=== PATIENT | male | born 1945 | race African-American/Black ===

== ENCOUNTER 2021-08-09 23:36 | Inpatient (IN) | payer OTHER, MEDICAID, SELFPAY ==
[~2021-08-09] VITALS: Ht 172.7 cm; Wt 77.1 kg
[2021-08-09 23:43] VITALS: BP 97/49
[2021-08-10] MEDS ORDERED: PANTOPRAZOLE 40 MG INJ VIAL IVP ONE (00:15)
[2021-08-10 00:49] LABS: BASOPHILS % (AUTO) 0.4 % (0.0-2.0); EOSINOPHILS % (AUTO) 0.6 % (0.0-4.0); HEMOGLOBIN 7.6 g/dL (12.0-18.0); LYMPHOCYTES # (AUTO) 0.6 K/uL (2.0-11.5); LYMPHOCYTES % (AUTO) 23.6 % (20.5-51.1); MEAN CORPUSCULAR HEMOGLOBIN 28 pg (27-31); MEAN CORPUSCULAR HGB CONC 34 g/dL (33-37); MEAN CORPUSCULAR VOLUME 79.8 fL (80-94); MONOCYTES # (AUTO) 0.4 K/uL (0.8-1.0); MONOCYTES % (AUTO) 13.6 % (1.7-9.3); NEUTROPHILS # (AUTO) 1.7 K/uL (1.8-7.7); NEUTROPHILS % (AUTO) 61.8 % (42.2-75.2); PLATELET COUNT (AUTO) 56 K/uL (140-450); RED BLOOD CELL COUNT(AUTO) 2.75 MIL/uL (4.20-6.10); RED CELL DISTRIBUTION WIDTH 17.4 % (11.6-13.7); WHITE BLOOD COUNT (AUTO) 2.7 K/uL (4.8-10.8)
[2021-08-10] MEDS ORDERED: INSU-1343 SQ (00:57)
[2021-08-10] MEDS ORDERED: FERR-212 PO (00:57)
[2021-08-10] MEDS ORDERED: GABA100C PO (00:57)
[2021-08-10] MEDS ORDERED: ALFU10TE10 PO (00:57)
[2021-08-10] MEDS ORDERED: ISOS60TE70 PO (00:57)
[2021-08-10] MEDS ORDERED: CARV25TA2 PO (00:57)
[2021-08-10] MEDS ORDERED: INSU100V4 SQ (00:57)
[2021-08-10] MEDS ORDERED: SITA25TA3 PO (00:57)
[2021-08-10] MEDS ORDERED: CILO100T PO (00:57)
[2021-08-10 01:10] LABS: ANION GAP 16.4 (8-16); ASPARTATE AMINOTRANSFERASE 31 U/L (15-37); CARBON DIOXIDE 27.5 mmol/L (21-32); CHLORIDE 100 mmol/L (98-107); GLUCOSE 104 mg/dL (74-106); POTASSIUM 4.9 mmol/L (3.5-5.1); SODIUM SERUM 139 mmol/L (136-145); TOTAL BILIRUBIN 0.4 mg/dL (0.0-1.0)
[2021-08-10 01:17] LABS: CREATININE 8.7 mg/dL (0.6-1.3); UREA NITROGEN, BLOOD 66 mg/dL (7-18)
[2021-08-10 01:23] LABS: PROTHROMBIN TIME 12.1 secs (10.8-13.4)
[2021-08-10] MEDS ORDERED: NACL 0.9% 500 ML IV ONE (01:30)
[2021-08-10] MEDS ORDERED: DESMOPRESSIN 4 MCG/ML AMP IV ONE ×2 (01:45→02:10)
[2021-08-10] MEDS ORDERED: DESMOPRESSIN 4 MCG/ML AMP ONE (03:12)
[2021-08-10] MEDS ORDERED: SODIUM PHOS / POTASSIUM PHOS 1 PKT PDR PO PRN (08:10)
[2021-08-10] MEDS ORDERED: DOCUSATE SODIUM 100 MG GELCAP PO PRN (08:10)
[2021-08-10] MEDS ORDERED: ZOLPIDEM 5 MG TAB PO PRN (08:10)
[2021-08-10] MEDS ORDERED: ONDANSETRON 4 MG/2 ML VIAL IVP PRN (08:10)
[2021-08-10] MEDS ORDERED: POTASSIUM CHLORIDE 10 MEQ TABER PO PRN (08:10)
[2021-08-10] MEDS ORDERED: LORazepam 2 MG/ML VIAL IM/IVP PRN (08:10)
[2021-08-10] MEDS ORDERED: ACETAMINOPHEN 325 MG TAB PO PRN (08:10)
[2021-08-10] MEDS ORDERED: MAG SULF 2000 MG/WATER PREMIX 50 ML IV PRN (08:10)
[2021-08-10 09:00] VITALS: BP 124/62
[2021-08-10] MEDS: DEXT 5% / NACL 0.45% 1,000 ML IV SCH (09:11)
[2021-08-10] MEDS: PANTOPRAZOLE 40 MG INJ VIAL IVP SCH ×2 (09:11→20:05)
[2021-08-10 09:17] LABS: PROTHROMBIN TIME 10.4 secs (10.8-13.4)
[2021-08-10 09:21] LABS: CHOL/HDL RATIO 2.7 (1-4.5); FREE T4 (FREE THYROXINE) 0.98 ng/dL (0.76-1.46); PHOSPHORUS 6.4 mg/dL (2.5-4.9); THYROID STIMULATING HORMONE 0.9 uIU/mL (0.34-3.74)
[2021-08-10 12:00] VITALS: BP 114/47
[2021-08-10 16:00] VITALS: BP 142/64
[2021-08-10 20:00] VITALS: BP 129/62
[2021-08-11] VITALS: BP 155/63
[2021-08-11 04:00] VITALS: BP 174/75
[2021-08-11 07:20] LABS: BASOPHILS % (AUTO) 0.6 % (0.0-2.0); EOSINOPHILS % (AUTO) 1.1 % (0.0-4.0); HEMATOCRIT 25.1 % (36-52); HEMOGLOBIN 8.7 g/dL (12.0-18.0); LYMPHOCYTES # (AUTO) 0.5 K/uL (2.0-11.5); LYMPHOCYTES % (AUTO) 15.3 % (20.5-51.1); MEAN CORPUSCULAR HEMOGLOBIN 27 pg (27-31); MEAN CORPUSCULAR HGB CONC 35 g/dL (33-37); MEAN CORPUSCULAR VOLUME 78.4 fL (80-94); MONOCYTES # (AUTO) 0.2 K/uL (0.8-1.0); MONOCYTES % (AUTO) 6.3 % (1.7-9.3); NEUTROPHILS # (AUTO) 2.5 K/uL (1.8-7.7); NEUTROPHILS % (AUTO) 76.7 % (42.2-75.2); PLATELET COUNT (AUTO) 53 K/uL (140-450); RED BLOOD CELL COUNT(AUTO) 3.21 MIL/uL (4.20-6.10); RED CELL DISTRIBUTION WIDTH 16.5 % (11.6-13.7)
[2021-08-11 07:26] LABS: PHOSPHORUS 4.5 mg/dL (2.5-4.9); URIC ACID 3.5 mg/dL (2.6-7.2)
[2021-08-11 07:40] LABS: ALBUMIN 2.8 g/dL (3.4-5.0); ANION GAP 14.1 (8-16); ASPARTATE AMINOTRANSFERASE 31 U/L (15-37); CARBON DIOXIDE 27.2 mmol/L (21-32); CHLORIDE 100 mmol/L (98-107); GLUCOSE 90 mg/dL (74-106); MAGNESIUM 2.2 mg/dL (1.8-2.4); POTASSIUM 4.3 mmol/L (3.5-5.1); SODIUM SERUM 137 mmol/L (136-145); TOTAL BILIRUBIN 0.5 mg/dL (0.0-1.0); UREA NITROGEN, BLOOD 40 mg/dL (7-18)
[2021-08-11 08:00] VITALS: BP 143/51
[2021-08-11 08:07] LABS: CREATININE 6.3 mg/dL (0.6-1.3)
[2021-08-11] MEDS: DEXT 5% / NACL 0.45% 1,000 ML IV SCH (08:30)
[2021-08-11] MEDS: PANTOPRAZOLE 40 MG INJ VIAL IVP SCH ×2 (09:00→20:41)
[2021-08-11] MEDS: VIT-B COMP/VIT-C/FOLIC ACID 1 TAB PO SCH (09:09)
[2021-08-11 12:00] VITALS: BP 136/62
[2021-08-11 16:00] VITALS: BP 148/66
[2021-08-11 16:38] LABS: WHITE BLOOD COUNT (AUTO) 3.3 K/uL (4.8-10.8)
[2021-08-11] MEDS: CALCIUM ACETATE 667 MG TAB PO SCH (17:37)
[2021-08-11 20:00] VITALS: BP 149/66
[2021-08-12] VITALS: BP 140/65
[2021-08-12 04:00] VITALS: BP 136/60
[2021-08-12 07:47] LABS: BASOPHILS % (AUTO) 0.6 % (0.0-2.0); EOSINOPHILS % (AUTO) 0.6 % (0.0-4.0); HEMATOCRIT 27.6 % (36-52); HEMOGLOBIN 9.6 g/dL (12.0-18.0); LYMPHOCYTES # (AUTO) 1.3 K/uL (2.0-11.5); MEAN CORPUSCULAR HEMOGLOBIN 27 pg (27-31); MEAN CORPUSCULAR HGB CONC 35 g/dL (33-37); MEAN CORPUSCULAR VOLUME 78.6 fL (80-94); MONOCYTES # (AUTO) 0.4 K/uL (0.8-1.0); MONOCYTES % (AUTO) 10.4 % (1.7-9.3); NEUTROPHILS # (AUTO) 1.8 K/uL (1.8-7.7); NEUTROPHILS % (AUTO) 51.4 % (42.2-75.2); PLATELET COUNT (AUTO) 56 K/uL (140-450); RED BLOOD CELL COUNT(AUTO) 3.52 MIL/uL (4.20-6.10); RED CELL DISTRIBUTION WIDTH 16.9 % (11.6-13.7); WHITE BLOOD COUNT (AUTO) 3.6 K/uL (4.8-10.8)
[2021-08-12 08:00] VITALS: BP 138/58
[2021-08-12] MEDS: DEXT 5% / NACL 0.45% 1,000 ML IV SCH (08:15)
[2021-08-12 09:10] LABS: ANION GAP 14.2 (8-16); ASPARTATE AMINOTRANSFERASE 27 U/L (15-37); CARBON DIOXIDE 25.3 mmol/L (21-32); CHLORIDE 99 mmol/L (98-107); GLUCOSE 83 mg/dL (74-106); MAGNESIUM 2.1 mg/dL (1.8-2.4); POTASSIUM 4.5 mmol/L (3.5-5.1); SODIUM SERUM 134 mmol/L (136-145); TOTAL BILIRUBIN 0.4 mg/dL (0.0-1.0); UREA NITROGEN, BLOOD 55 mg/dL (7-18)
[2021-08-12 09:13] LABS: CREATININE 8.4 mg/dL (0.6-1.3)
[2021-08-12] MEDS: CALCIUM ACETATE 667 MG TAB PO SCH ×3 (09:30→17:45)
[2021-08-12] MEDS: VIT-B COMP/VIT-C/FOLIC ACID 1 TAB PO SCH (09:30)
[2021-08-12] MEDS: PANTOPRAZOLE 40 MG INJ VIAL IVP SCH ×2 (09:30→20:55)
[2021-08-12 12:00] VITALS: BP 139/65
[2021-08-12 16:00] VITALS: BP 138/56
[2021-08-12 20:00] VITALS: BP 165/70
[2021-08-13] VITALS (7 sets, daily range): BP systolic 122–152; BP diastolic 52–80
[2021-08-13 07:00] LABS: BASOPHILS % (AUTO) 0.5 % (0.0-2.0); EOSINOPHILS % (AUTO) 0.1 % (0.0-4.0); HEMATOCRIT 28.3 % (36-52); HEMOGLOBIN 9.7 g/dL (12.0-18.0); LYMPHOCYTES # (AUTO) 0.9 K/uL (2.0-11.5); LYMPHOCYTES % (AUTO) 36.2 % (20.5-51.1); MEAN CORPUSCULAR HEMOGLOBIN 27 pg (27-31); MEAN CORPUSCULAR HGB CONC 34 g/dL (33-37); MEAN CORPUSCULAR VOLUME 78.7 fL (80-94); MONOCYTES # (AUTO) 0.3 K/uL (0.8-1.0); MONOCYTES % (AUTO) 12.9 % (1.7-9.3); NEUTROPHILS # (AUTO) 1.3 K/uL (1.8-7.7); NEUTROPHILS % (AUTO) 50.3 % (42.2-75.2); PLATELET COUNT (AUTO) 43 K/uL (140-450); RED CELL DISTRIBUTION WIDTH 17.4 % (11.6-13.7); WHITE BLOOD COUNT (AUTO) 2.6 K/uL (4.8-10.8)
[2021-08-13 07:43] LABS: ALBUMIN 2.8 g/dL (3.4-5.0); ASPARTATE AMINOTRANSFERASE 29 U/L (15-37); CARBON DIOXIDE 28.2 mmol/L (21-32); CHLORIDE 100 mmol/L (98-107); GLUCOSE 117 mg/dL (74-106); MAGNESIUM 1.9 mg/dL (1.8-2.4); POTASSIUM 4.2 mmol/L (3.5-5.1); SODIUM SERUM 138 mmol/L (136-145); TOTAL BILIRUBIN 0.4 mg/dL (0.0-1.0); UREA NITROGEN, BLOOD 38 mg/dL (7-18)
[2021-08-13 08:33] LABS: CREATININE 6.6 mg/dL (0.6-1.3)
[2021-08-13] MEDS: CALCIUM ACETATE 667 MG TAB PO SCH ×3 (08:51→16:56)
[2021-08-13] MEDS: VIT-B COMP/VIT-C/FOLIC ACID 1 TAB PO SCH (08:51)
[2021-08-13] MEDS: PANTOPRAZOLE 40 MG INJ VIAL IVP SCH ×2 (08:51→20:30)
[2021-08-13] MEDS: EPOETIN ALFA-EPBX 10,000 UNITS/ML VIAL SUBQ SCH (08:51)
[2021-08-13] MEDS: DEXT 5% / NACL 0.45% 1,000 ML IV SCH (08:52)
[2021-08-13] MEDS ORDERED: CEPH-588 PO (10:48)
[2021-08-13] MEDS ORDERED: ASPI-1205 PO (10:48)
[2021-08-13] MEDS ORDERED: HYDROcodone/APAP 5/325 MG 1 TAB TAB PO PRN (11:10)
[2021-08-13] MEDS ORDERED: HYDROcodone/APAP 5/325 MG 1 TAB TAB ONE (11:13)
[2021-08-14] VITALS: BP 125/40
[2021-08-14] MEDS: guaiFENesin 20 MG/ML UDC PO PRN ×2 (00:47→05:44)
[2021-08-14 04:00] VITALS: BP 149/68
[2021-08-14 07:04] LABS: BASOPHILS % (AUTO) 0.5 % (0.0-2.0); EOSINOPHILS % (AUTO) 0.2 % (0.0-4.0); HEMATOCRIT 26.5 % (36-52); HEMOGLOBIN 9.2 g/dL (12.0-18.0); LYMPHOCYTES # (AUTO) 0.7 K/uL (2.0-11.5); LYMPHOCYTES % (AUTO) 26.8 % (20.5-51.1); MEAN CORPUSCULAR HEMOGLOBIN 27 pg (27-31); MEAN CORPUSCULAR HGB CONC 35 g/dL (33-37); MONOCYTES # (AUTO) 0.2 K/uL (0.8-1.0); MONOCYTES % (AUTO) 8.2 % (1.7-9.3); NEUTROPHILS # (AUTO) 1.7 K/uL (1.8-7.7); NEUTROPHILS % (AUTO) 64.3 % (42.2-75.2); PLATELET COUNT (AUTO) 42 K/uL (140-450); RED BLOOD CELL COUNT(AUTO) 3.41 MIL/uL (4.20-6.10); RED CELL DISTRIBUTION WIDTH 17.3 % (11.6-13.7); WHITE BLOOD COUNT (AUTO) 2.7 K/uL (4.8-10.8)
[2021-08-14 07:44] LABS: ALBUMIN 2.7 g/dL (3.4-5.0); ANION GAP 16.7 (8-16); ASPARTATE AMINOTRANSFERASE 32 U/L (15-37); CARBON DIOXIDE 26.2 mmol/L (21-32); CHLORIDE 98 mmol/L (98-107); GLUCOSE 94 mg/dL (74-106); POTASSIUM 4.9 mmol/L (3.5-5.1); SODIUM SERUM 136 mmol/L (136-145); TOTAL BILIRUBIN 0.5 mg/dL (0.0-1.0); UREA NITROGEN, BLOOD 60 mg/dL (7-18)
[2021-08-14 08:00] VITALS: BP 134/50
[2021-08-14 08:01] LABS: MAGNESIUM 1.9 mg/dL (1.8-2.4)
[2021-08-14] MEDS: VIT-B COMP/VIT-C/FOLIC ACID 1 TAB PO SCH (08:30)
[2021-08-14] MEDS: PANTOPRAZOLE 40 MG INJ VIAL IVP SCH ×2 (08:30→20:36)
[2021-08-14] MEDS: CALCIUM ACETATE 667 MG TAB PO SCH ×3 (08:31→17:50)
[2021-08-14] MEDS: DEXT 5% / NACL 0.45% 1,000 ML IV SCH (08:31)
[2021-08-14 12:00] VITALS: BP 139/70
[2021-08-14] MEDS ORDERED: oxyCODONE/APAP 5/325 MG 1 TAB TAB PO PRN (13:45)
[2021-08-14 16:00] VITALS: BP 124/48
[2021-08-14 20:00] VITALS: BP 130/70
[2021-08-15] VITALS: BP 128/71
[2021-08-15 04:00] VITALS: BP 126/68
[2021-08-15 07:21] LABS: BASOPHILS % (AUTO) 0.6 % (0.0-2.0); EOSINOPHILS % (AUTO) 0.1 % (0.0-4.0); HEMATOCRIT 27.6 % (36-52); HEMOGLOBIN 9.4 g/dL (12.0-18.0); LYMPHOCYTES # (AUTO) 0.6 K/uL (2.0-11.5); LYMPHOCYTES % (AUTO) 20.3 % (20.5-51.1); MEAN CORPUSCULAR HEMOGLOBIN 27 pg (27-31); MEAN CORPUSCULAR HGB CONC 34 g/dL (33-37); MEAN CORPUSCULAR VOLUME 78.2 fL (80-94); MONOCYTES # (AUTO) 0.2 K/uL (0.8-1.0); MONOCYTES % (AUTO) 7.7 % (1.7-9.3); NEUTROPHILS # (AUTO) 2.1 K/uL (1.8-7.7); NEUTROPHILS % (AUTO) 71.3 % (42.2-75.2); PLATELET COUNT (AUTO) 49 K/uL (140-450); RED BLOOD CELL COUNT(AUTO) 3.53 MIL/uL (4.20-6.10); RED CELL DISTRIBUTION WIDTH 17.8 % (11.6-13.7)
[2021-08-15 07:28] LABS: ALBUMIN 2.9 g/dL (3.4-5.0); ANION GAP 16.4 (8-16); ASPARTATE AMINOTRANSFERASE 39 U/L (15-37); CARBON DIOXIDE 28.2 mmol/L (21-32); CHLORIDE 98 mmol/L (98-107); GLUCOSE 127 mg/dL (74-106); MAGNESIUM 1.9 mg/dL (1.8-2.4); POTASSIUM 4.6 mmol/L (3.5-5.1); SODIUM SERUM 138 mmol/L (136-145); TOTAL BILIRUBIN 0.5 mg/dL (0.0-1.0); UREA NITROGEN, BLOOD 43 mg/dL (7-18)
[2021-08-15 07:33] LABS: CREATININE 7.4 mg/dL (0.6-1.3)
[2021-08-15 08:00] VITALS: BP 114/41
[2021-08-15] MEDS: VIT-B COMP/VIT-C/FOLIC ACID 1 TAB PO SCH (08:47)
[2021-08-15] MEDS: DEXT 5% / NACL 0.45% 1,000 ML IV SCH (08:47)
[2021-08-15] MEDS: CALCIUM ACETATE 667 MG TAB PO SCH ×3 (08:47→16:26)
[2021-08-15] MEDS: PANTOPRAZOLE 40 MG INJ VIAL IVP SCH (08:47)
[2021-08-15] MEDS: EPOETIN ALFA-EPBX 10,000 UNITS/ML VIAL SUBQ SCH (08:48)
[2021-08-15 12:00] VITALS: BP 137/81
[2021-08-15 14:51] VITALS: BP 137/81
[2021-08-15] MEDS ORDERED: PANTOPRAZOLE 40 MG TABEC PO SCH (21:00)
== END 2021-08-15 17:58 | DRG 871 ==
LOC: MED 23:36 → MTU 08-10 06:56
PROVIDERS: ADMIT Family Medicine; ATTEND Family Medicine
PROC: 30233N1 Transfusion of Nonautologous Red Blood Cells into Peripheral Vein, Percutaneous Approach (ICD-10-PCS; principal; 2021-08-10)
PROC: 5A1D70Z Performance of Urinary Filtration, Intermittent, Less than 6 Hours Per Day (ICD-10-PCS; 2021-08-10)
PROC: 5A1D80Z Performance of Urinary Filtration, Prolonged Intermittent, 6-18 hours Per Day (ICD-10-PCS; 2021-08-12)
PROC: 5A1D70Z Performance of Urinary Filtration, Intermittent, Less than 6 Hours Per Day (ICD-10-PCS; 2021-08-14)
DX: A41.9 Sepsis, unspecified organism (principal); U07.1 COVID-19; N17.0 Acute kidney failure with tubular necrosis; K85.90 Acute pancreatitis without necrosis or infection, unspecified; E43 Unspecified severe protein-calorie malnutrition; N18.6 End stage renal disease; K92.2 Gastrointestinal hemorrhage, unspecified; D61.818 Other pancytopenia; I12.0 Hypertensive chronic kidney disease with stage 5 chronic kidney disease or end stage renal disease; Z96.659 Presence of unspecified artificial knee joint; E11.22 Type 2 diabetes mellitus with diabetic chronic kidney disease; D57.1 Sickle-cell disease without crisis; E83.51 Hypocalcemia; Z88.8 Allergy status to other drugs, medicaments and biological substances; Z90.49 Acquired absence of other specified parts of digestive tract; Z99.2 Dependence on renal dialysis; Z79.899 Other long term (current) drug therapy; Z79.4 Long term (current) use of insulin; Z68.25 Body mass index [BMI] 25.0-25.9, adult
CPT/HCPCS: 36415; 36430; 71045; 76705; 80053; 82150; 82948; 83036; 83690; 83735; 83880; 84100; 84439; 84443; 84484; 84550; 85025; 85610; 85730; 86886; 86900; 86901; 86920; 87040; 87081; 87804; 93005; 96365; 96375; 97110; 97112; 97116; 97163-GP; 97530; 99291; C9113; J2597; P9016; Q0092; Q5106; U0003

== ENCOUNTER 2022-06-09 10:27 | Inpatient (IN) | payer OTHER, MEDICAID ==
[~2022-06-09] VITALS: Ht 177.8 cm; Wt 64.9 kg
[~2022-06-09 10:27] MED LIST: ALFU10TE10 PO; ASPI-1205 PO; CARV25TA2 PO; CEPH-588 PO; CILO100T PO; FERR-212 PO; GABA100C PO; INSU-1343 SQ; INSU100V4 SQ; ISOS60TE70 PO; SITA25TA3 PO
--- NOTE | 2022-06-09 10:27 | NUR ---
PT BIB [facility] TO ER BED 11
--- NOTE | 2022-06-09 10:30 | NUR ---
PT BIB ALS RUN C/O GENERALIZED ABDOMINAL PAIN RADIATING TO FLANK X3 DAYS. PT C/O 10/10 ABDOMINAL PAIN. IV INSERTED TO RIGHT FA #20GUAGE. NAD. SAFETY MAINTAINED.
[2022-06-09 10:36] VITALS: BP 151/70
[2022-06-09] MEDS ORDERED: fentaNYL citrate 0.05 MG/ML VIAL IM ONE (12:05)
[2022-06-09 12:51] LABS: ALBUMIN 3.5 g/dL (3.4-5.0); ANION GAP 17.4 (8-16); ASPARTATE AMINOTRANSFERASE 24 U/L (15-37); CARBON DIOXIDE 30.4 mmol/L (21-32); CHLORIDE 95 mmol/L (98-107); GLUCOSE 156 mg/dL (74-106); LIPASE 268 U/L (73-393); POTASSIUM 4.8 mmol/L (3.5-5.1); SODIUM SERUM 138 mmol/L (136-145); TOTAL BILIRUBIN 0.5 mg/dL (0.0-1.0); UREA NITROGEN, BLOOD 44 mg/dL (7-18)
[2022-06-09 12:54] LABS: CREATININE 8.8 mg/dL (0.6-1.3)
[2022-06-09 12:59] LABS: BASOPHILS % (AUTO) 0.4 % (0.0-2.0); EOSINOPHILS # (AUTO) 0.1 K/uL (0-0.4); EOSINOPHILS % (AUTO) 1.6 % (0.0-4.0); HEMATOCRIT 27.1 % (36-52); HEMOGLOBIN 9.4 g/dL (12.0-18.0); LYMPHOCYTES # (AUTO) 1.1 K/uL (2.0-11.5); LYMPHOCYTES % (AUTO) 19.4 % (20.5-51.1); MEAN CORPUSCULAR HEMOGLOBIN 27 pg (27-31); MEAN CORPUSCULAR HGB CONC 35 g/dL (33-37); MEAN CORPUSCULAR VOLUME 79.1 fL (80-94); MONOCYTES # (AUTO) 0.4 K/uL (0.8-1.0); MONOCYTES % (AUTO) 7.4 % (1.7-9.3); NEUTROPHILS % (AUTO) 71.2 % (42.2-75.2); PLATELET COUNT (AUTO) 98 K/uL (140-450); RED BLOOD CELL COUNT(AUTO) 3.43 MIL/uL (4.20-6.10); RED CELL DISTRIBUTION WIDTH 22.7 % (11.6-13.7); WHITE BLOOD COUNT (AUTO) 5.6 K/uL (4.8-10.8)
--- NOTE | 2022-06-09 13:04 | NUR ---
PT MEDICATED PER ORDER. PENDING DISPO. NAD. SAFETY MAINTAINED.
[2022-06-09] MEDS ORDERED: fentaNYL citrate 0.05 MG/ML VIAL IVP ONE (13:40)
--- NOTE | 2022-06-09 15:27 | NUR ---
PT TX TO TELE, ATTEMPTED TO GIVEN BEDSIDE REPORT TO NGUYEN VALDEZ, STATES SHE HAS AN UNRESPONSIVE PT AND UNABLE TO TAKE REPORT WILL CALL ER FOR REPORT. PT PLACED ON TELE MONITOR. LEFT IN STABLE CONDITION. COMPUTER ASSISTANTCOURTNEY WILDE MADE AWARE
[2022-06-09 16:00] VITALS: BP 128/62
[2022-06-09] MEDS ORDERED: HYDROmorphone 1 MG/ML AMP IVP PRN ×2 (17:05→20:45)
--- NOTE | 2022-06-09 17:47 | NUR ---
RECEIVED PATIENT AT APPROX 1530 FROM ED VIA [employer]. A/O X4. VSS. AFEBRILE. RESPIRATIONS EVEN AND UNLABORED. NO SOB NOTED. PATIENT COMPLAINING OF ABDOMINAL PAIN AT 03/26. DR. RHODES CALLED AND NOTIFIED. ORDER GIVEN FOR PAIN. PATIENT ALSO REQUESTING DIALYSIS FOR TODAY. DR. RHODES CALLED AND NOTIFIED. CONSULT FOR DR. CHARLES ORDERED. DR. MOCK CALLED FOR CONSULT AND STATES TO CALL DIALYSIS NURSE TO COME DO DIALYSIS. NEEL COLORADO DIALYSIS NURSE CALLED AND INFORMED PATIENT NEEDS DIALYSIS. NEEL COLORADO STATES SHE WILL COME DO DIALYSIS. CONSENT FOR DIALYSIS OBTAINED. PATIENT ORIENTED TO ROOM AND CALL LIGHT SYSTEM. WILL CONTINUE TO MONITOR FOR SAFETY. Dalton MALDONADO RN.
[2022-06-09 20:00] VITALS: BP 129/67
--- NOTE | 2022-06-09 20:01 | NUR ---
ROUNDS , ON HD , HD NURSE AT BEDSIDE . WILL CONT. TO MONITOR .
--- NOTE | 2022-06-09 20:40 | NUR ---
PER DR. RHODES GIVE ANOTHER DOSE OF DILAUDID 1 MG TIV NOW .
[2022-06-09] MEDS ORDERED: guaiFENesin DM 200/20 MG-10 ML 10 ML UDC PO PRN (20:45)
[2022-06-09] MEDS ORDERED: POTASSIUM CHLORIDE 10 MEQ TABER PO PRN (20:45)
[2022-06-09] MEDS ORDERED: HYDROcodone/APAP 7.5/325 MG 1 TAB PO PRN (20:45)
[2022-06-09] MEDS ORDERED: ONDANSETRON 4 MG/2 ML VIAL IM/IVP PRN (20:45)
[2022-06-09] MEDS ORDERED: DEXT 5% /NACL 0.9% 1,000 ML IV SCH (20:45)
[2022-06-09] MEDS ORDERED: ZOLPIDEM 5 MG TAB PO PRN (20:45)
[2022-06-09] MEDS ORDERED: DOCUSATE SODIUM 100 MG GELCAP PO PRN (20:45)
--- NOTE | 2022-06-09 21:06 | NUR ---
REFUSED 1 MG DILAUDID - PER PT 1MG DOES NOT WORKS FOR HIM - WILL REFER TO DR. STRINGER .
[2022-06-09 21:14] LABS: CHOL/HDL RATIO 2.4 (1-4.5); FREE T4 (FREE THYROXINE) 1.08 ng/dL (0.76-1.46); MAGNESIUM 2.9 mg/dL (1.8-2.4); PHOSPHORUS 6.3 mg/dL (2.5-4.9); THYROID STIMULATING HORMONE 1.21 uIU/mL (0.34-3.74)
[2022-06-09] MEDS ORDERED: HYDROmorphone PFS 2 MG/ML SYR ONE (22:05)
--- NOTE | 2022-06-09 22:14 | NUR ---
C/O PAIN BP 131 / 66 , RR 18 , O2 SAT 98 % HR 88 - WILL MEDICATE . Addendum: 06/10/22 at [address] STRINGER REVISED DILAUDID TO 2MG Q 4HRS PRN FOR SEV. PAIN .
--- NOTE | 2022-06-09 23:02 | NUR ---
RE VISIT , [facility] 141/ 78 , ON TELE MONITOR - PER HD NURSE 2L OUT .
[2022-06-10] VITALS: BP 146/68
--- NOTE | 2022-06-10 01:00 | NUR ---
RE VISIT - BP 133/ 67 - DENIES PAIN - ON TELE MONITOR , NO S/SX OF ACUTE DISTRESS NOTED AT THIS TIME , CALL LIGHT WITHIN REACH .
[2022-06-10 04:00] VITALS: BP 136/85
--- NOTE | 2022-06-10 04:00 | NUR ---
ROUNDS , NO S/SX OF ACUTE DISTRESS NOTED , ON TELE MONITOR , CALL LIGHT WITHIN REACH ./
--- NOTE | 2022-06-10 06:00 | NUR ---
RPUNDS , ON TELE MONITOR , NO S/SX OF ACUTE DISTRESS NOTED . CALL LIGHT WITHIN REACH
--- NOTE | 2022-06-10 07:00 | NUR ---
DURING THE ROUNDS , PT C/O PAIN - HE IS SO MAD BECAUSE HE WANTS HIS DILAUDID Q4HR - I RE EMPHASIZE HIM THE DILAUID PRESCRIBED Q4HRS NEEDED FOR SEV PAIN ONLY AND NOT EVERY HOURS REGULARLY . PT IS MAD HE SAID I DON'T CARE WHAT YOU SAYING LONG I WANTS MY DILAUDID EVERY 4 HOURS . WHEN I ABOUT TO GIVE THE DILAUDID AND TO SCAN HIS ID BAND HE IS SO MAD AND HE SAID DON'T SCAN MY NAME ANY MORE - JUST GIVE THE DILAUDID NOW ! I RE EMPHASIZE TO HIM I HAVE TO SCAN HIS ID BAND BECAUSE IT IS SOP OF THE HOSPITAL - SCAN ID BAND AND WILL GIVE DILAUDID . BP 147 / 85 , HR 98 , RR 20 , O2 SAT 97 5 , CALL LIGHT WITHIN REACH , ON TELE MONITOR . - WILL ENDORSE .
--- NOTE | 2022-06-10 07:05 | NUR ---
ENDORSED - AWAKE , FOR CONT. OF CARE , CALL LIGHT WITHIN REACH , PEED THRU URINAL 40 CC .
[2022-06-10] MEDS ORDERED: HYDROmorphone PFS 2 MG/ML SYR ONE (07:10)
[2022-06-10] MEDS: HYDROmorphone 1 MG/ML AMP IVP PRN ×3 (07:18→16:22)
[2022-06-10 07:26] LABS: BASOPHILS % (AUTO) 0.6 % (0.0-2.0); EOSINOPHILS # (AUTO) 0.1 K/uL (0-0.4); HEMATOCRIT 25.2 % (36-52); HEMOGLOBIN 8.8 g/dL (12.0-18.0); LYMPHOCYTES # (AUTO) 0.9 K/uL (2.0-11.5); LYMPHOCYTES % (AUTO) 16.8 % (20.5-51.1); MEAN CORPUSCULAR HEMOGLOBIN 27 pg (27-31); MEAN CORPUSCULAR HGB CONC 35 g/dL (33-37); MEAN CORPUSCULAR VOLUME 78.2 fL (80-94); MONOCYTES # (AUTO) 0.3 K/uL (0.8-1.0); MONOCYTES % (AUTO) 5.4 % (1.7-9.3); NEUTROPHILS # (AUTO) 4.2 K/uL (1.8-7.7); NEUTROPHILS % (AUTO) 76.2 % (42.2-75.2); PLATELET COUNT (AUTO) 85 K/uL (140-450); RED BLOOD CELL COUNT(AUTO) 3.22 MIL/uL (4.20-6.10); RED CELL DISTRIBUTION WIDTH 22.1 % (11.6-13.7); WHITE BLOOD COUNT (AUTO) 5.5 K/uL (4.8-10.8)
[2022-06-10 07:32] LABS: ANION GAP 14.2 (8-16); CARBON DIOXIDE 31.4 mmol/L (21-32); CHLORIDE 102 mmol/L (98-107); GLUCOSE 150 mg/dL (74-106); POTASSIUM 4.6 mmol/L (3.5-5.1); SODIUM SERUM 143 mmol/L (136-145); UREA NITROGEN, BLOOD 22 mg/dL (7-18)
[2022-06-10 08:00] VITALS: BP 130/61
[2022-06-10] MEDS ORDERED: SODIUM ZIRCONIUM CYCLOSILICATE 10 GM POWD.PACK PO SCH (08:30)
[2022-06-10 09:24] LABS: CREATININE 5.4 mg/dL (0.6-1.3)
[2022-06-10] MEDS: PANTOPRAZOLE 40 MG TABEC PO SCH (09:56)
--- NOTE | 2022-06-10 10:10 | NUR ---
PATIENT HAS BEEN SCREENED AND CATEGORIZED MODERATE NUTRITION RISK. PATIENT WILL BE SEEN WITHIN 3-5 DAYS OF ADMISSION. 06/12/2210/29/[address]
[2022-06-10] MEDS ORDERED: DEXTROSE 50% 50 ML SYR IVP PRN ×2 (10:40→13:20)
[2022-06-10] MEDS: BLOOD GLUCOSE MONITORING 1 DEV DEV FS SCH ×3 (11:49→21:00)
[2022-06-10 12:00] VITALS: BP 130/61
[2022-06-10] MEDS: CALCIUM ACETATE 667 MG TAB PO SCH ×2 (12:07→16:22)
[2022-06-10] MEDS ORDERED: INSULIN LISPRO SLIDING SCALE 100 UNITS/ML VIAL SUBQ PRN (13:20)
[2022-06-10] MEDS: GABAPENTIN 100 MG CAP PO SCH ×2 (13:40→16:22)
--- NOTE | 2022-06-10 15:13 | NUR ---
DC PLANNIN YRS OLD MALE PATIENT WAS ADMITTED FROM [facility] WITH A DX OF INTRACTABLE ABDOMINAL PAIN. PATIENT HAS A HX OF SICKLE CELL ANEMIA, ESRD ON HEMODIALYSIS , HTN AND DM. ADMINISTERED IV PAIN MEDS AND CONTINUED HOME MEDS. ORDERED HEMODIALYSIS. CONSULTED WITH NEPHRO AND INSIGHT LEADER FOR POSSIBLE SICKLE CELL CRISES. DC PLAN TO RETURN TO [facility] . RECEIVED A CALL FROM [email or web address] [phone] THAT PATIENT WAS WITH [email or web address] PRIOR TO HOSPITAL ADMISSION. CM TO FOLLOW Addendum: 06/12/22 at 1434 by Iman Ignacio RN DC PLANNING: PATIENT HAS AN ORDER TO GO TO SNF BUT PATIENT REFUSED TO GO TO SNF STATED HE HAS A INSTALLER INSPECTOR FINAL AND HIS ANTIBIOTICS CAN BE GIVEN WITH DIALYSIS. CALLED DR JANG SHALE PLANER OPERATOR HELPER CLARIFIED VANCOMYCIN ORDER PER MD TO BE GIVEN WITH DIALYSIS FOR 3 DAYS. CALLED JOSE RAMON RICHARDS SPOKE WITH [facility] VALDEZ FAXED THE ORDER STATED THEY RECEIVED IT AND WILL START TOMORROW. CALLED PATIENT'S INSTALLER INSPECTOR FINAL STATED SHE IS OUT OF TOWN BUT WILL MAKE IT TONIGHT TO PICK HIM UP. PER CHAUNCEY INSTALLER INSPECTOR FINAL PATIENT HAS THE [place] AND ABLE TO GO WITH TRANSPORTER . CM TO FOLLOW
[2022-06-10 16:00] VITALS: BP 115/52
[2022-06-10] MEDS: FERROUS SULFATE 325 MG TABEC PO SCH (16:22)
[2022-06-10] MEDS ORDERED: BLOOD GLUCOSE MONITORING 1 DEV DEV FS SCH (16:30)
--- NOTE | 2022-06-10 17:00 | NUR ---
DISCHARGE PLANNING PATIENT IS A 76 YEAR-OLD MALE ADMITTED ON 06/09/2022 AT [facility]/ED DUE TO COMPLAINTS OF LEFT SIDED ABDOMINAL PAIN FOR THE PAST 3 DAYS. PATIENT HAS MEDICAL HISTORY OF ESRD ON HEMODIALYSIS AT [facility] ON MONDAYS, THURSDAY, AND FRIDAYS; PATIENT ALSO HAS SICKLE CELL ANEMIA. SW MET WITH PATIENT AT BEDSIDE TO DISCUSS AND GATHER PATIENT'S COLLATERAL INFORMATION. PATIENT WAS AWAKE AND ALERT AND REPORTED LIVING ALONE IN THE [facility] (APARTMENTS IN [facility]). PATIENT REPORTED HAVING PLENTY OF SUPPORT FROM HIS SON DUKE SAN AND HIS CAREGIVER CHAUNCEY ALEGRE . PATIENT REPORTED THAT HIS EMERGENCY CONTACT AND MEDICAL DECISION MAKER IS HIS SON DUKE SAN . PATIENT STATED NOT HAVING ADVANCE DIRECTIVES AND WAS NOT INTERESTED ON GETTING INFORMATION FORMS PROVIDED BY SW AT THE TIME OF VISIT. PATIENT REPORTED HAVING IHSS/DPSS 200 HRS PER MONTH WITH CAREGIVER CHAUNCEY ALEGRE AND RECEIVING HOME HEALTH WITH [employer]. PATIENT REPORTED HAVING A HOSPITAL BED, CANE, WHEELCHAIR HIS DME AT HOME. PER PATIENT HE IS NOT ACTIVE AND GETTING P.T. WITH [employer]. PATIENT REPORTED NOT HAVING ISSUES WITH GETTING OR TAKING ANY MEDICATIONS. PATIENT STATED THAT ALL HIS MEDICATIONS GET ART STUDIO TEACHER BY HIS CAREGIVER AT [facility] IN [place] OR MAIL BY THE PHARMACY. SW EXPLAINED TO PATIENT THE IMPORTANCE OF FOLLOWING UP WITH AN APPOINTMENT WITH-IN 5-7 DAYS AFTER DISCHARGE FROM [facility] WITH HIS PCP. PATIENT AGREED AND STATED THAT HE HAS A GOOD AND CLOSE RELATIONSHIP WITH HIS PCP AND HIS LAST APPOINTMENT OVER THE PHONE WAS LAST WEEK. PATIENT STATED THAT HE OR HIS CAREGIVER CHAUNCEY WILL BE MAKING HIS OWN APPOINTMENT AFTER DISCHARGE. PATIENT DECLINED FOR SW TO MAKE HIS FOLLOW UP APPOINTMENT. PATIENT STATED THAT HIS CAREGIVER WILL BE ASSISTING WITH TRANSPORTATION BACK HOME WHEN HE IS READY FOR DISCHARGE. SW WILL FOLLOW UP WITH PATIENT NEEDED.
--- NOTE | 2022-06-10 19:15 | NUR ---
ENDORSED PT TO NIGHT NURSE COURTNEY LOPEZ FOR CONTINUITY OF CARE, PATIENT IS STABLE. Addendum: 06/10/22 at 1925 by Steffanie Anderson RN TUCKPOINTER CLEANER CAULKER NURSE ANNA
--- NOTE | 2022-06-10 19:16 | NUR ---
RECEIVED SHIFT ENDORSEMENT FROM DANIELE VALDEZ, PATIENT WAS STABLE DURING SHIFT REPORT. PATIENT WAS IN BED ASLEEP. PATIENT WAS EASILY AROUSED BY CALLING HIS NAME. PATIENT HAD DIFFICULTIES TALKING BUT WAS ABLE TO MAKE NEEDS KNOWN. DENIED ANY PAIN/DISCOMFORT AT THIS TIME. PATIENT WAS NOT ABLE TO EXPLAIN WHY HE WAS IN THE HOSPITAL IN HIS OWN WORDS. PATIENT IS SCHEDULED FOR DIALYSIS TODAY BY 1999. NO NOTED RESPIRATORY DISTRESS. PATIENT HAS TWO SIDE RAILS X 3 UP FOR SAFETY AND ADJUSTMENTS. CALL LIGHT IS WITHIN REACH FOR ALL ASSISTANCE BUT NURSING WILL FREQUENT THE ROOM FOR ANTICIPATED ASSISTANCE. [email or web address]
[2022-06-10 20:00] VITALS: BP 183/72
[2022-06-10] MEDS: ACETAMINOPHEN 325 MG TAB PO PRN (21:00)
--- NOTE | 2022-06-10 22:10 | NUR ---
DR ALCAZAR WAS AT BED SIDE FOR CONSULTATION TO PATIENT FOR ELEVATED TEMPERATURE. PATIENT HAS REFUSED ALL CARE AND HAS A TEMPERATURE OF 101.2F. [email or web address]
[2022-06-10] MEDS ORDERED: PIPERACILLIN/TAZOBACTAM 2.25 GM VIAL IV ONE (22:52)
--- NOTE | 2022-06-10 23:16 | NUR ---
PATIENT FINALLY COMPLIED FOR NURSING TO GIVE IV ANTIBIOTICS OF ZOSYN. CURRENT TEMPERATURE IS NOTED AT 102.7F. NURSING WILL MONITOR FOR SIDE EFFECTS AND TEMPERATURE. NURSING WILL FREQUENT ROOM FOR ANTICIPATED NEEDS. [email or web address]
[2022-06-11] VITALS: BP 126/62
[2022-06-11] MEDS: INSULIN LISPRO SLIDING SCALE 100 UNITS/ML VIAL SUBQ PRN ×4 (00:18→20:04)
[2022-06-11] MEDS: HYDROmorphone 1 MG/ML AMP IVP PRN ×5 (00:19→18:04)
[2022-06-11] MEDS: ACETAMINOPHEN 325 MG TAB PO PRN (00:25)
--- NOTE | 2022-06-11 00:29 | NUR ---
PATIENT IS MORE ALERT AND COHERENT. PATIENT WAS ABLE TO ASK FOR PAIN PRN WITH THE COMPLIANCE TO TAKE TYLENOL FOR FEVER, ACCUCHECK WITH COVERAGE. COVERING RN GAVE PAIN PRN WITH AN ASSESSMENT BP WAS APPROPRIATE FOR MEDICATION 126/62 WITH HR 116. NURSING WILL FREQUENT THE ROOM FOR ANTICIPATED NEEDS. [email or web address]
[2022-06-11] MEDS ORDERED: LEVOFLOXACIN 500 MG/D5W PREMIX 100 ML IV SCH (00:40)
--- NOTE | 2022-06-11 01:28 | NUR ---
SPOKE TO [facility] AT THE [facility] TO VERIFY THE ORDERS FOR ANTIBIOTICS BY DR ALCAZAR. PHARMACY STATED TO GIVE THEM FIVE MINUTES AND REFRESH TO GIVE THE ORDERED MEDICATION. NURSING REASSESSED PATIENT TEMPERATURE AND NOTED IT HAS COME DOWN TO 99.3 [email or web address]
--- NOTE | 2022-06-11 03:23 | NUR ---
NURSING NOTED PATIENT IN BED ASLEEP. NO NOTED S/S OF PAIN/DISTRESS. NO NOTED S/S OF RESPIRATORY DISTRESS. CALL LIGHT WITHIN REACH. NO NOTED SIDE EFFECTS FROM ANTIBIOTICS. SIDE RAILS UP X 2 FOR SAFETY AND COMFORT. [email or web address]
[2022-06-11 04:00] VITALS: BP 130/56
--- NOTE | 2022-06-11 05:16 | NUR ---
PATIENT REQUESTED PAIN MANAGEMENT FOR ABDOMINAL PAIN. NO NOTED RESPIRATORY DISTRESS. BP WAS NOTED AT 130/56 HR 83. NURSING WILL FOLLOW UP IN ONE HOUR. [email or web address]
[2022-06-11] MEDS ORDERED: PIPERACILLIN/TAZOBACTAM 2.25 GM VIAL IV ONE (05:29)
[2022-06-11] MEDS: PIPERACILLIN/TAZOBACTAM 2.25 GM in DEXTROSE 5% 50 ML IV SCH ×3 (05:49→20:03)
[2022-06-11] MEDS: BLOOD GLUCOSE MONITORING 1 DEV DEV FS SCH ×4 (06:32→20:02)
--- NOTE | 2022-06-11 07:20 | NUR ---
ENDORSED PATIENT TO SUZI VALDEZ FOR CONTINUITY OF CARE, PATIENT WAS STABLE DURING SHIFT CHANGE. [email or web address]
[2022-06-11 07:30] LABS: BASOPHILS % (AUTO) 0.5 % (0.0-2.0); EOSINOPHILS % (AUTO) 0.4 % (0.0-4.0); HEMATOCRIT 20.5 % (36-52); LYMPHOCYTES # (AUTO) 0.9 K/uL (2.0-11.5); LYMPHOCYTES % (AUTO) 12.2 % (20.5-51.1); MEAN CORPUSCULAR HEMOGLOBIN 27 pg (27-31); MEAN CORPUSCULAR HGB CONC 34 g/dL (33-37); MEAN CORPUSCULAR VOLUME 79.2 fL (80-94); MONOCYTES # (AUTO) 0.7 K/uL (0.8-1.0); MONOCYTES % (AUTO) 9.1 % (1.7-9.3); NEUTROPHILS # (AUTO) 5.6 K/uL (1.8-7.7); NEUTROPHILS % (AUTO) 77.8 % (42.2-75.2); PLATELET COUNT (AUTO) 72 K/uL (140-450); RED BLOOD CELL COUNT(AUTO) 2.58 MIL/uL (4.20-6.10); RED CELL DISTRIBUTION WIDTH 21.8 % (11.6-13.7); WHITE BLOOD COUNT (AUTO) 7.2 K/uL (4.8-10.8)
--- NOTE | 2022-06-11 07:30 | NUR ---
RECEIVED BEDSIDE REPORT FROM NIGHTSDEFT COURTNEY GRANT. PT IS ON ROOM AIR. PT HAS A 20G IV ON THE RIGHT FOREARM WHICH IS PATENT AND INTACT. PT IS A&OX4. BED IS IN THE LOWEST POSITION, CALL LIGHT IS WITHIN REACH, BED ALARMS CHECKED.
[2022-06-11 07:31] LABS: ANION GAP 12.3 (8-16); CARBON DIOXIDE 29.6 mmol/L (21-32); CHLORIDE 98 mmol/L (98-107); GLUCOSE 173 mg/dL (74-106); POTASSIUM 4.9 mmol/L (3.5-5.1); SODIUM SERUM 135 mmol/L (136-145); UREA NITROGEN, BLOOD 37 mg/dL (7-18)
[2022-06-11] MEDS: FERROUS SULFATE 325 MG TABEC PO SCH ×2 (07:55→17:26)
[2022-06-11] MEDS: CALCIUM ACETATE 667 MG TAB PO SCH ×3 (07:55→17:26)
[2022-06-11] MEDS ORDERED: LACTULOSE 20 GM/30 ML UDC PO PRN (08:35)
[2022-06-11] MEDS: ISOSORBIDE MONONITRATE 30 MG TABER PO SCH (09:20)
[2022-06-11] MEDS: carvediloL 12.5 MG TAB PO SCH (09:20)
[2022-06-11] MEDS: VIT-B COMP/VIT-C/FOLIC ACID 1 TAB PO SCH (09:21)
[2022-06-11] MEDS: EPOETIN ALFA-EPBX 10,000 UNITS/ML VIAL SUBQ SCH (09:21)
[2022-06-11] MEDS: PANTOPRAZOLE 40 MG TABEC PO SCH (09:21)
[2022-06-11] MEDS: GABAPENTIN 100 MG CAP PO SCH ×3 (09:21→17:26)
--- NOTE | 2022-06-11 10:00 | NUR ---
HD NURSE AT THE BEDSIDE, ORDERS AND LABS GIVEN. PT IN STABLE CONDITION.
--- NOTE | 2022-06-11 14:00 | NUR ---
BEGAN TRANSFUSION OF 1 UNIT PACKED RBCS. PT V/S WNL, PAIN 8/10 IN ABDOMEN. MEDICATED PRN DILAUDID.
--- NOTE | 2022-06-11 14:02 | NUR ---
HD NURSE REPORTED COMPLETION OF HD, 2L REMOVED.
--- NOTE | 2022-06-11 14:17 | NUR ---
NO ACUTE REACTION NOTED, V/S WNL. PT DENIES ANY ACUTE CHANGES.
[2022-06-11 16:00] VITALS: BP 116/49
--- NOTE | 2022-06-11 18:30 | NUR ---
PRBCS UNIT FINISHED INFUSING, PT CURRENTLY SLEEPING. CONTINUING WITH SALINE FLUSH.
--- NOTE | 2022-06-11 19:07 | NUR ---
ENDORSED PT TO [facility] NURSE HONG FOR CONTINUITY OF CARE. PT IN STABLE CONDITION.
--- NOTE | 2022-06-11 19:08 | NUR ---
RECEIVED PT FROM MORNING SHIFT NURSE. PT IS AOX4 BUT CONFUSE SOMETIMES, AND BEDREST. PT IS ON ROOM AIR AND ON CLEAR LIQUID DIET. PT HAS URINAL IN BEDSIDE AND HAS IV ON RIGHT FOREARM GAUGE 20 SALINE LOCK. PT SKIN IS INTACT. NO COMPLAIN OF PAIN AT THIS TIME AND NO S/S OF DISTRESS NOTED. ALL SAFETY MEASURES IMPLEMENTED. BED IN LOW POSITION, BED WHEELS ON LOCKED AND CALL LIGHT WITHIN REACH.
--- NOTE | 2022-06-11 20:03 | NUR ---
SCHEDULED AND PRESCRIBED MEDICATION WAS GIVEN TO PT PER MD ORDER. PT BLOOD GLUCOSE IS 181, INSULIN 2 UNITS WAS GIVEN TO PT. ALL SAFETY MEASURES IMPLEMENTED. BED IN LOW POSITION, BED WHEELS ON LOCKED AND CALL LIGHT WITHIN REACH.
[2022-06-11] MEDS ORDERED: VANCOMYCIN PER PHARMACY MC PRN (21:50)
[2022-06-11] MEDS ORDERED: VANCOMYCIN 500 MG in DEXTROSE 5% 100 ML IV SCH (22:00)
--- NOTE | 2022-06-11 22:00 | NUR ---
TALKED TO PT REGARDING PT EYE GLASSES DUE TO FRAME BROKE INTO TWO. HE ASKED IF WE CAN FIX IT, I TOLD HIM THAT ONLY THE [facility] CAN DO IT AND FIX IT. PT VERBALIZE UNDERSTANDING. ALL SAFETY MEASURES IMPLEMENTED. BED IN LOW POSITION, BED WHEELS ON LOCKED AND CALL LIGHT WITHIN REACH.
[2022-06-12] VITALS: BP 99/53
--- NOTE | 2022-06-12 | NUR ---
PT IS SLEEPING. CHEST RISE AND FALL NOTED. NO S/S OF RESPIRATORY DISTRESS NOTED. ALL SAFETY MEASURES IMPLEMENTED. BED IN LOW POSITION, BED WHEELS ON LOCKED AND CALL LIGHT WITHIN REACH.
--- NOTE | 2022-06-12 02:00 | NUR ---
CHECKED THE PT STILL SLEEPING. CHEST RISE AND FALL NOTED. NO S/S OF RESPIRATORY DISTRESS NOTED. ALL SAFETY MEASURES IMPLEMENTED. BED IN LOW POSITION, BED WHEELS ON LOCKED AND CALL LIGHT WITHIN REACH.
[2022-06-12] MEDS: ACETAMINOPHEN 325 MG TAB PO PRN (04:14)
--- NOTE | 2022-06-12 04:14 | NUR ---
PT REFUSED TO TAKE TYLENOL. PT WANTS PRN DILAUDID.
[2022-06-12] MEDS: HYDROmorphone 1 MG/ML AMP IVP PRN ×3 (04:33→14:12)
--- NOTE | 2022-06-12 04:33 | NUR ---
PT WAS GIVEN PRN DILAUDID DUE TO KNEE PAIN WITH THE BP OF 133/53 WITH PULSE OF 67. ALL SAFETY MEASURES IMPLEMENTED. BED IN LOW POSITION, BED WHEELS ON LOCKED AND CALL LIGHT WITHIN REACH.
[2022-06-12] MEDS: PIPERACILLIN/TAZOBACTAM 2.25 GM in DEXTROSE 5% 50 ML IV SCH ×2 (05:00→13:02)
[2022-06-12] MEDS: BLOOD GLUCOSE MONITORING 1 DEV DEV FS SCH ×2 (06:36→12:24)
--- NOTE | 2022-06-12 06:36 | NUR ---
PT BLOOD GLUCOSE IS 141. NO INSULIN COVERAGE NEEDED.
[2022-06-12 07:11] LABS: BASOPHILS % (AUTO) 0.5 % (0.0-2.0); EOSINOPHILS # (AUTO) 0.1 K/uL (0-0.4); EOSINOPHILS % (AUTO) 1.7 % (0.0-4.0); HEMATOCRIT 22.8 % (36-52); HEMOGLOBIN 7.9 g/dL (12.0-18.0); LYMPHOCYTES % (AUTO) 16.6 % (20.5-51.1); MEAN CORPUSCULAR HEMOGLOBIN 28 pg (27-31); MEAN CORPUSCULAR HGB CONC 34 g/dL (33-37); MEAN CORPUSCULAR VOLUME 80.5 fL (80-94); MONOCYTES # (AUTO) 0.4 K/uL (0.8-1.0); MONOCYTES % (AUTO) 6.1 % (1.7-9.3); NEUTROPHILS # (AUTO) 4.5 K/uL (1.8-7.7); NEUTROPHILS % (AUTO) 75.1 % (42.2-75.2); PLATELET COUNT (AUTO) 72 K/uL (140-450); RED BLOOD CELL COUNT(AUTO) 2.84 MIL/uL (4.20-6.10); RED CELL DISTRIBUTION WIDTH 21.3 % (11.6-13.7)
[2022-06-12 07:19] LABS: ANION GAP 13.5 (8-16); CARBON DIOXIDE 28.1 mmol/L (21-32); CHLORIDE 99 mmol/L (98-107); GLUCOSE 147 mg/dL (74-106); POTASSIUM 4.6 mmol/L (3.5-5.1); SODIUM SERUM 136 mmol/L (136-145); UREA NITROGEN, BLOOD 28 mg/dL (7-18)
[2022-06-12 07:21] LABS: CREATININE 5.9 mg/dL (0.6-1.3)
--- NOTE | 2022-06-12 07:24 | NUR ---
PT IS STABLE. ENDORSED PT TO MORNING SHIFT NURSE FOR CONTINUITY OF CARE.
--- NOTE | 2022-06-12 07:35 | NUR ---
PT IS SLEEPING, REPORT OBTAINED FROM NIGHT NURSE, PT LOOKS COMFORTABLE, NO SOB.[id number]
[2022-06-12 08:00] VITALS: BP 114/59
[2022-06-12] MEDS: FERROUS SULFATE 325 MG TABEC PO SCH (08:00)
[2022-06-12] MEDS: CALCIUM ACETATE 667 MG TAB PO SCH ×2 (08:00→12:13)
[2022-06-12] MEDS ORDERED: VANCOMYCIN 500 MG in DEXTROSE 5% 100 ML IV SCH (09:00)
[2022-06-12] MEDS: ISOSORBIDE MONONITRATE 30 MG TABER PO SCH (09:07)
[2022-06-12] MEDS: EPOETIN ALFA-EPBX 10,000 UNITS/ML VIAL SUBQ SCH (09:10)
[2022-06-12] MEDS: carvediloL 12.5 MG TAB PO SCH (09:20)
[2022-06-12] MEDS: VIT-B COMP/VIT-C/FOLIC ACID 1 TAB PO SCH (09:20)
[2022-06-12] MEDS: GABAPENTIN 100 MG CAP PO SCH ×2 (09:21→12:14)
[2022-06-12] MEDS: PANTOPRAZOLE 40 MG TABEC PO SCH (09:21)
[2022-06-12] MEDS ORDERED: VANC1PDS14 IV (11:02)
[2022-06-12] MEDS ORDERED: LEVO-481 PO (11:04)
--- NOTE | 2022-06-12 14:35 | NUR ---
SPOKE WITH RESTAURANT MANAGER CHAUNCEY TO INFORM THAT THE PT IS DISCHARGED, SHE SAYS SHE IS OUT OF TOWN THAT SHE DID NOT KNOW THAT THE PATIENT DISCHARGED. I INFORM HER THAT THE HOSPITAL IS OPEN 24HRS SO SOON SHE GETS BACK TO COME AND PICK HIM UP.[id number]
[2022-06-12 14:43] VITALS: BP 114/59
[2022-06-12] MEDS ORDERED: LID5T TP (15:10)
--- NOTE | 2022-06-12 15:47 | NUR ---
PT DISCHARGED HOME, DISCHARGE INSTRUCTION IS GIVEN, IV AND ID BAND REMOVED, PT WHEELED OUT WITHOUT DISCOMFORT BY Preston LEDBETTER
== END 2022-06-12 15:35 | disposition home or self-care (01) | DRG 871 ==
LOC: MED 10:27 → MTU 14:15
PROVIDERS: ADMIT Family Medicine; ATTEND Family Medicine
PROC: 5A1D70Z Performance of Urinary Filtration, Intermittent, Less than 6 Hours Per Day (ICD-10-PCS; 2022-06-09)
PROC: 30233N1 Transfusion of Nonautologous Red Blood Cells into Peripheral Vein, Percutaneous Approach (ICD-10-PCS; principal; 2022-06-11)
PROC: 5A1D70Z Performance of Urinary Filtration, Intermittent, Less than 6 Hours Per Day (ICD-10-PCS; 2022-06-11)
DX: A41.9 Sepsis, unspecified organism (principal); D57.00 Hb-SS disease with crisis, unspecified; J18.9 Pneumonia, unspecified organism; N18.6 End stage renal disease; I12.0 Hypertensive chronic kidney disease with stage 5 chronic kidney disease or end stage renal disease; R16.1 Splenomegaly, not elsewhere classified; D57.3 Sickle-cell trait; E11.22 Type 2 diabetes mellitus with diabetic chronic kidney disease; Z20.822 Contact with and (suspected) exposure to COVID-19; E87.5 Hyperkalemia; E83.41 Hypermagnesemia; E78.5 Hyperlipidemia, unspecified; E83.39 Other disorders of phosphorus metabolism; D50.9 Iron deficiency anemia, unspecified; Z79.4 Long term (current) use of insulin; Z88.8 Allergy status to other drugs, medicaments and biological substances; Z90.49 Acquired absence of other specified parts of digestive tract; Z99.2 Dependence on renal dialysis; E83.51 Hypocalcemia
CPT/HCPCS: 36415; 71045; 74018; 80048; 80053; 82150; 82948; 83036; 83605; 83690; 83735; 83880; 84100; 84436; 84439; 84443; 84479; 85025; 85610; 85730; 86886; 86900; 86901; 86920; 87081; 93005; 97116; 97163-GP; 97530; 99285; J1170; J1815; J1956; J2543; J3010; J3370; J7060; P9016; Q0092; Q5106

== ENCOUNTER 2022-10-20 13:44 | Emergency (ER) | payer OTHER ==
[~2022-10-20] VITALS: Ht 177.8 cm; Wt 71.7 kg
[~2022-10-20 13:44] MED LIST changes: -CEPH-588 PO; -CILO100T PO; +CILO100T2 PO; +LEVO-481 PO; +LID5T TP; +VANC1PDS14 IV
[2022-10-20 13:49] VITALS: BP 139/55
[2022-10-20 14:33] LABS: BASOPHILS # (AUTO) 0.1 K/uL (0.00-0.22); BASOPHILS % (AUTO) 1.2 % (0.0-2.0); EOSINOPHILS # (AUTO) 0.1 K/uL (0-0.4); EOSINOPHILS % (AUTO) 2.1 % (0.0-4.0); HEMATOCRIT 27.9 % (36-52); HEMOGLOBIN 9.6 g/dL (12.0-18.0); LYMPHOCYTES # (AUTO) 1.2 K/uL (2.0-11.5); LYMPHOCYTES % (AUTO) 25.8 % (20.5-51.1); MEAN CORPUSCULAR HEMOGLOBIN 29 pg (27-31); MEAN CORPUSCULAR HGB CONC 34 g/dL (33-37); MEAN CORPUSCULAR VOLUME 83.1 fL (80-94); MONOCYTES # (AUTO) 0.5 K/uL (0.8-1.0); MONOCYTES % (AUTO) 9.3 % (1.7-9.3); NEUTROPHILS % (AUTO) 61.6 % (42.2-75.2); PLATELET COUNT (AUTO) 58 K/uL (140-450); RED BLOOD CELL COUNT(AUTO) 3.35 MIL/uL (4.20-6.10); RED CELL DISTRIBUTION WIDTH 17.7 % (11.6-13.7); WHITE BLOOD COUNT (AUTO) 4.8 K/uL (4.8-10.8)
[2022-10-20 14:49] LABS: ANION GAP 15.2 (8-16); CARBON DIOXIDE 29.5 mmol/L (21-32); CHLORIDE 93 mmol/L (98-107); GLUCOSE 205 mg/dL (74-106); POTASSIUM 4.7 mmol/L (3.5-5.1); SODIUM SERUM 133 mmol/L (136-145); UREA NITROGEN, BLOOD 43 mg/dL (7-18)
[2022-10-20 14:51] LABS: CREATININE 10.2 mg/dL (0.6-1.3)
--- NOTE | 2022-10-20 15:07 | NUR ---
ASSUMED PATIENT CARE, NURSING ASSESSMENT COMPLETED.
--- NOTE | 2022-10-20 15:17 | NUR ---
Patient discharged with v/s stable. Written and verbal after care instructions ABOUT DIALYSIS given and explained. Patient verbalized understanding. Wheel Chair Assisted with by caregiver. All questions addressed prior to discharge. Advised to follow up with PMD.
== END 2022-10-20 15:17 | disposition home or self-care (01) ==
LOC: MED 13:44
DX: N18.6 End stage renal disease (principal); D64.9 Anemia, unspecified; R06.02 Shortness of breath; M79.601 Pain in right arm; E11.9 Type 2 diabetes mellitus without complications; Z86.73 Personal history of transient ischemic attack (TIA), and cerebral infarction without residual deficits; Z99.2 Dependence on renal dialysis; Z88.5 Allergy status to narcotic agent; Z88.8 Allergy status to other drugs, medicaments and biological substances; Z79.899 Other long term (current) drug therapy; Z98.890 Other specified postprocedural states
CPT/HCPCS: 36415; 71045; 80048; 85025; 93005; 99285; Q0092

== ENCOUNTER 2023-07-11 11:25 | Emergency (ER) | payer OTHER ==
[~2023-07-11] VITALS: Ht 177.8 cm; Wt 65.8 kg
[2023-07-11 11:29] VITALS: BP 138/73; PULSE 109; RESP 18; TEMP 98.2; O2SAT 98
[2023-07-11] MEDS ORDERED: NACL 0.9% 1,000 ML IV SCH (11:35)
[2023-07-11] MEDS ORDERED: fentaNYL citrate 0.05 MG/ML VIAL IVP ONE (11:35)
[2023-07-11] MEDS ORDERED: ONDANSETRON 4 MG/2 ML VIAL IVP ONE (11:35)
[2023-07-11 11:57] VITALS: O2SAT 97
[2023-07-11 11:59] LABS: BASOPHILS # (AUTO) 0.1 K/uL (0.00-0.22); BASOPHILS % (AUTO) 0.9 % (0.0-2.0); EOSINOPHILS # (AUTO) 0.1 K/uL (0-0.4); EOSINOPHILS % (AUTO) 0.7 % (0.0-4.0); LYMPHOCYTES # (AUTO) 1.2 K/uL (2.0-11.5); MEAN CORPUSCULAR HEMOGLOBIN 25 pg (27-31); MEAN CORPUSCULAR HGB CONC 33 g/dL (33-37); MEAN CORPUSCULAR VOLUME 75.6 fL (80-94); MONOCYTES # (AUTO) 0.7 K/uL (0.8-1.0); MONOCYTES % (AUTO) 7.4 % (1.7-9.3); NEUTROPHILS # (AUTO) 7.4 K/uL (1.8-7.7); PLATELET COUNT (AUTO) 153 K/uL (140-450); RED BLOOD CELL COUNT(AUTO) 4.76 MIL/uL (4.20-6.10); RED CELL DISTRIBUTION WIDTH 19.4 % (11.6-13.7); WHITE BLOOD COUNT (AUTO) 9.5 K/uL (4.8-10.8)
[2023-07-11 12:32] LABS: ALANINE AMINOTRANSFERASE 14 U/L (12-78); ALBUMIN 2.5 g/dL (3.4-5.0); ALKALINE PHOSPHATASE 118 U/L (50-136); ANION GAP 13.2 (8-16); ASPARTATE AMINOTRANSFERASE 10 U/L (15-37); CALCIUM 9.5 mg/dL (8.5-10.1); CARBON DIOXIDE 32.1 mmol/L (21-32); CHLORIDE 94 mmol/L (98-107); GLUCOSE 253 mg/dL (74-106); LIPASE 32 U/L (16-77); POTASSIUM 3.3 mmol/L (3.5-5.1); SODIUM SERUM 136 mmol/L (136-145); TOTAL BILIRUBIN 0.8 mg/dL (0.0-1.0); TOTAL PROTEIN, SERUM 7.5 g/dL (6.4-8.2); UREA NITROGEN, BLOOD 29 mg/dL (7-18)
[2023-07-11 12:43] LABS: CREATININE 9.6 mg/dL (0.6-1.3)
[2023-07-11] MEDS ORDERED: ONDA8TAB87 PO ×2 (13:46→15:49)
[2023-07-11] MEDS ORDERED: CIPR500T4 PO ×2 (13:46→15:49)
[2023-07-11] MEDS ORDERED: ACET-503 PO ×2 (13:46→15:49)
[2023-07-11 15:54] VITALS: BP 129/67; PULSE 92; RESP 16; O2SAT 98
== END 2023-07-11 15:54 | disposition home or self-care (01) ==
LOC: MED 11:25
DX: R10.32 Left lower quadrant pain (principal); R19.7 Diarrhea, unspecified; R11.0 Nausea; E11.22 Type 2 diabetes mellitus with diabetic chronic kidney disease; N18.6 End stage renal disease; Z86.73 Personal history of transient ischemic attack (TIA), and cerebral infarction without residual deficits; Z79.899 Other long term (current) drug therapy; Z79.4 Long term (current) use of insulin; Z88.6 Allergy status to analgesic agent; Z88.8 Allergy status to other drugs, medicaments and biological substances; Z79.82 Long term (current) use of aspirin
CPT/HCPCS: 36415; 74176; 80053; 83690; 85025; 96374; 96375; 99285; J2405; J3010

== ENCOUNTER 2024-02-19 12:42 | Inpatient (IN) | payer OTHER ==
[~2024-02-19] VITALS: Ht 177.8 cm; Wt 60.6 kg
[~2024-02-19 12:42] MED LIST changes: +ACET-503 PO; +CIPR500T4 PO; +ONDA8TAB87 PO
[2024-02-19 13:05] VITALS: BP 114/66; PULSE 90; RESP 18; TEMP 98.1; O2SAT 97
[2024-02-19 14:51] LABS: BASOPHILS # (AUTO) 0.1 K/uL (0.00-0.22); BASOPHILS % (AUTO) 1.1 % (0.0-2.0); EOSINOPHILS # (AUTO) 0.1 K/uL (0-0.4); HEMATOCRIT 21.7 % (36-52); HEMOGLOBIN 7.2 g/dL (12.0-18.0); LYMPHOCYTES # (AUTO) 1.2 K/uL (2.0-11.5); LYMPHOCYTES % (AUTO) 24.8 % (20.5-51.1); MEAN CORPUSCULAR HEMOGLOBIN 25 pg (27-31); MEAN CORPUSCULAR HGB CONC 33 g/dL (33-37); MEAN CORPUSCULAR VOLUME 74.6 fL (80-94); MONOCYTES # (AUTO) 0.4 K/uL (0.8-1.0); MONOCYTES % (AUTO) 9.3 % (1.7-9.3); NEUTROPHILS % (AUTO) 62.8 % (42.2-75.2); PLATELET COUNT (AUTO) 77 K/uL (140-450); RED BLOOD CELL COUNT(AUTO) 2.91 MIL/uL (4.20-6.10); RED CELL DISTRIBUTION WIDTH 19.9 % (11.6-13.7); WHITE BLOOD COUNT (AUTO) 4.8 K/uL (4.8-10.8)
[2024-02-19 14:56] LABS: CALCIUM 8.5 mg/dL (8.5-10.1); CARBON DIOXIDE 32.5 mmol/L (21-32); CHLORIDE 99 mmol/L (98-107); GLUCOSE 99 mg/dL (74-106); POTASSIUM 4.5 mmol/L (3.5-5.1); SODIUM SERUM 137 mmol/L (136-145); UREA NITROGEN, BLOOD 31 mg/dL (7-18)
[2024-02-19 14:58] LABS: CREATININE 4.6 mg/dL (0.6-1.3)
[2024-02-19 15:00] LABS: ALBUMIN 2.9 g/dL (3.4-5.0); BILIRUBIN,DIRECT 0.1 mg/dL (0.0-0.3); TOTAL BILIRUBIN 0.3 mg/dL (0.0-1.0); TOTAL PROTEIN, SERUM 6.1 g/dL (6.4-8.2)
[2024-02-19] MEDS ORDERED: ZOLPIDEM 5 MG TAB PO PRN (16:00)
[2024-02-19] MEDS ORDERED: LORazepam 1 MG TAB PO PRN (16:00)
[2024-02-19] MEDS ORDERED: ONDANSETRON 4 MG/2 ML VIAL IVP PRN (16:00)
[2024-02-19] MEDS: GABAPENTIN 100 MG CAP PO SCH (17:15)
[2024-02-19 20:04] VITALS: PULSE 101; RESP 18; O2SAT 100
[2024-02-19 20:08] VITALS: PULSE 105
[2024-02-19 21:48] LABS: HEMOGLOBIN 7.7 g/dL (12.0-18.0)
[2024-02-19 22:04] VITALS: BP 118/64; PULSE 101; RESP 18; TEMP 98.1; O2SAT 100
[2024-02-19] MEDS: FERROUS SULFATE 325 MG TABEC PO SCH (22:18)
[2024-02-19] MEDS: PANTOPRAZOLE 40 MG INJ VIAL IVP SCH (22:18)
[2024-02-19] MEDS: cilostazoL 100 MG TAB PO SCH (22:19)
[2024-02-20] VITALS: BP 112/59; PULSE 100; PULSE 99; RESP 18; TEMP 98; O2SAT 98
[2024-02-20 04:00] VITALS: BP 129/61; PULSE 103; PULSE 93; RESP 18; TEMP 97.8; O2SAT 100
[2024-02-20 06:32] LABS: EOSINOPHILS # (AUTO) 0.2 K/uL (0-0.4); EOSINOPHILS % (AUTO) 3.1 % (0.0-4.0); HEMATOCRIT 21.4 % (36-52); HEMOGLOBIN 7.4 g/dL (12.0-18.0); LYMPHOCYTES # (AUTO) 1.3 K/uL (2.0-11.5); LYMPHOCYTES % (AUTO) 25.2 % (20.5-51.1); MEAN CORPUSCULAR HEMOGLOBIN 26 pg (27-31); MEAN CORPUSCULAR HGB CONC 35 g/dL (33-37); MEAN CORPUSCULAR VOLUME 75.1 fL (80-94); MONOCYTES # (AUTO) 0.5 K/uL (0.8-1.0); MONOCYTES % (AUTO) 9.4 % (1.7-9.3); NEUTROPHILS # (AUTO) 3.2 K/uL (1.8-7.7); NEUTROPHILS % (AUTO) 61.3 % (42.2-75.2); PLATELET COUNT (AUTO) 72 K/uL (140-450); RED BLOOD CELL COUNT(AUTO) 2.85 MIL/uL (4.20-6.10); RED CELL DISTRIBUTION WIDTH 20.2 % (11.6-13.7); WHITE BLOOD COUNT (AUTO) 5.2 K/uL (4.8-10.8)
[2024-02-20 06:59] LABS: ALANINE AMINOTRANSFERASE 16 U/L (12-78); ALBUMIN 2.7 g/dL (3.4-5.0); ALKALINE PHOSPHATASE 106 U/L (50-136); ASPARTATE AMINOTRANSFERASE 23 U/L (15-37); CALCIUM 8.3 mg/dL (8.5-10.1); CARBON DIOXIDE 28.9 mmol/L (21-32); CHLORIDE 101 mmol/L (98-107); GLUCOSE 88 mg/dL (74-106); POTASSIUM 4.9 mmol/L (3.5-5.1); SODIUM SERUM 136 mmol/L (136-145); TOTAL BILIRUBIN 0.4 mg/dL (0.0-1.0); TOTAL PROTEIN, SERUM 5.6 g/dL (6.4-8.2); UREA NITROGEN, BLOOD 38 mg/dL (7-18)
[2024-02-20 07:01] LABS: CREATININE 5.1 mg/dL (0.6-1.3)
[2024-02-20 08:00] VITALS: BP 114/70; PULSE 69; PULSE 74; PULSE 99; RESP 18; TEMP 98.7; O2SAT 98
[2024-02-20] MEDS: DOCUSATE SODIUM 100 MG GELCAP PO SCH (09:00)
[2024-02-20 12:00] VITALS: BP 115/58; PULSE 103; PULSE 98; RESP 18; TEMP 97.8; O2SAT 100
[2024-02-20] MEDS ORDERED: DEXTROSE 50% 50 ML SYR IVP PRN (12:25)
[2024-02-20 12:31] LABS: BASOPHILS % (AUTO) 0.9 % (0.0-2.0); EOSINOPHILS # (AUTO) 0.1 K/uL (0-0.4); EOSINOPHILS % (AUTO) 2.7 % (0.0-4.0); HEMATOCRIT 21.6 % (36-52); HEMOGLOBIN 7.4 g/dL (12.0-18.0); LYMPHOCYTES # (AUTO) 1.5 K/uL (2.0-11.5); LYMPHOCYTES % (AUTO) 27.4 % (20.5-51.1); MEAN CORPUSCULAR HEMOGLOBIN 26 pg (27-31); MEAN CORPUSCULAR HGB CONC 34 g/dL (33-37); MEAN CORPUSCULAR VOLUME 75.8 fL (80-94); MONOCYTES # (AUTO) 0.3 K/uL (0.8-1.0); MONOCYTES % (AUTO) 6.2 % (1.7-9.3); NEUTROPHILS # (AUTO) 3.4 K/uL (1.8-7.7); NEUTROPHILS % (AUTO) 62.8 % (42.2-75.2); PLATELET COUNT (AUTO) 79 K/uL (140-450); RED BLOOD CELL COUNT(AUTO) 2.85 MIL/uL (4.20-6.10); RED CELL DISTRIBUTION WIDTH 20.3 % (11.6-13.7); WHITE BLOOD COUNT (AUTO) 5.5 K/uL (4.8-10.8)
[2024-02-20 15:42] LABS: HEMATOCRIT 19.9 % (36-52); HEMOGLOBIN 6.8 g/dL (12.0-18.0)
[2024-02-20 16:00] VITALS: BP 133/69; PULSE 90; PULSE 99; RESP 18; TEMP 98; O2SAT 100
[2024-02-20] MEDS ORDERED: SUPREP BOWEL PREP KIT 354 ML SOLN.RECON PO PRN (16:00)
[2024-02-20] MEDS: BLOOD GLUCOSE MONITORING 1 DEV DEV FS SCH (16:30)
[2024-02-20 20:00] VITALS: BP 114/59; PULSE 94; PULSE 97; RESP 18; TEMP 98.6; O2SAT 100
[2024-02-21] VITALS: BP 114/42; PULSE 96; PULSE 99; RESP 18; TEMP 98.4; O2SAT 100
[2024-02-21 04:00] VITALS: BP 124/62; PULSE 98; PULSE 99; RESP 18; TEMP 98.1; O2SAT 100
[2024-02-21 06:40] LABS: BASOPHILS # (AUTO) 0.1 K/uL (0.00-0.22); BASOPHILS % (AUTO) 1.3 % (0.0-2.0); EOSINOPHILS # (AUTO) 0.1 K/uL (0-0.4); EOSINOPHILS % (AUTO) 1.8 % (0.0-4.0); HEMATOCRIT 21.3 % (36-52); HEMOGLOBIN 7.3 g/dL (12.0-18.0); LYMPHOCYTES # (AUTO) 1.2 K/uL (2.0-11.5); LYMPHOCYTES % (AUTO) 21.9 % (20.5-51.1); MEAN CORPUSCULAR HEMOGLOBIN 26 pg (27-31); MEAN CORPUSCULAR HGB CONC 34 g/dL (33-37); MONOCYTES # (AUTO) 0.4 K/uL (0.8-1.0); MONOCYTES % (AUTO) 7.8 % (1.7-9.3); NEUTROPHILS # (AUTO) 3.7 K/uL (1.8-7.7); NEUTROPHILS % (AUTO) 67.2 % (42.2-75.2); PLATELET COUNT (AUTO) 62 K/uL (140-450); RED BLOOD CELL COUNT(AUTO) 2.77 MIL/uL (4.20-6.10); RED CELL DISTRIBUTION WIDTH 19.7 % (11.6-13.7); WHITE BLOOD COUNT (AUTO) 5.6 K/uL (4.8-10.8)
[2024-02-21 07:11] LABS: ALANINE AMINOTRANSFERASE 19 U/L (12-78); ALBUMIN 2.7 g/dL (3.4-5.0); ALKALINE PHOSPHATASE 93 U/L (50-136); ANION GAP 10.6 (8-16); ASPARTATE AMINOTRANSFERASE 26 U/L (15-37); CALCIUM 8.8 mg/dL (8.5-10.1); CHLORIDE 103 mmol/L (98-107); CREATININE 3.8 mg/dL (0.6-1.3); GLUCOSE 100 mg/dL (74-106); POTASSIUM 4.6 mmol/L (3.5-5.1); SODIUM SERUM 138 mmol/L (136-145); TOTAL BILIRUBIN 0.4 mg/dL (0.0-1.0); TOTAL PROTEIN, SERUM 5.5 g/dL (6.4-8.2); UREA NITROGEN, BLOOD 28 mg/dL (7-18)
[2024-02-21 08:00] VITALS: BP 99/50; PULSE 97; RESP 18; RESP 20; TEMP 97.6; O2SAT 100
[2024-02-21] MEDS: VIT-B COMP/VIT-C/FOLIC ACID 1 TAB PO SCH (09:00)
[2024-02-21] MEDS: PANTOPRAZOLE 40 MG INJ VIAL IVP SCH (09:17)
[2024-02-21] MEDS: bisacodyL 5 MG TABEC PO ONE (09:17)
[2024-02-21] MEDS: SODIUM PHOSPHATE 118 ML ENEM RC ONE (09:17)
[2024-02-21] MEDS: MIDAZOLAM 5 MG/5 ML VIAL IV ONE (11:38)
[2024-02-21] MEDS: fentaNYL citrate 0.05 MG/ML VIAL IVP ONE (11:39)
[2024-02-21] MEDS: MIDAZOLAM 5 MG/5 ML VIAL ONE (11:50)
[2024-02-21] MEDS: fentaNYL citrate 0.05 MG/ML VIAL ONE (11:51)
[2024-02-21] MEDS: diphenhydrAMINE 50 MG/ML VIAL ONE (11:51)
[2024-02-21 12:00] VITALS: BP 121/64; PULSE 65; PULSE 92; RESP 20; TEMP 97.8; O2SAT 98
[2024-02-21 16:00] VITALS: BP 103/56; PULSE 107; RESP 20; TEMP 98.6; O2SAT 99
[2024-02-21] MEDS: INSULIN LISPRO SLIDING SCALE 100 UNITS/ML VIAL SUBQ PRN (17:01)
[2024-02-21 20:00] VITALS: BP 100/54; PULSE 106; RESP 18; TEMP 98.2; O2SAT 100
[2024-02-22] VITALS: BP 107/59; PULSE 104; PULSE 106; RESP 18; TEMP 97.7; O2SAT 100
[2024-02-22 04:00] VITALS: BP 104/50; PULSE 100; PULSE 105; RESP 19; TEMP 97.4; O2SAT 100
[2024-02-22 07:17] LABS: ALANINE AMINOTRANSFERASE 21 U/L (12-78); ALBUMIN 2.8 g/dL (3.4-5.0); ALKALINE PHOSPHATASE 104 U/L (50-136); ANION GAP 13.9 (8-16); ASPARTATE AMINOTRANSFERASE 25 U/L (15-37); CALCIUM 9.2 mg/dL (8.5-10.1); CARBON DIOXIDE 28.3 mmol/L (21-32); CHLORIDE 103 mmol/L (98-107); GLUCOSE 144 mg/dL (74-106); POTASSIUM 5.2 mmol/L (3.5-5.1); SODIUM SERUM 140 mmol/L (136-145); TOTAL BILIRUBIN 0.4 mg/dL (0.0-1.0); TOTAL PROTEIN, SERUM 5.8 g/dL (6.4-8.2); UREA NITROGEN, BLOOD 38 mg/dL (7-18)
[2024-02-22 07:20] LABS: CREATININE 5.3 mg/dL (0.6-1.3)
[2024-02-22 07:25] LABS: BASOPHILS # (AUTO) 0.1 K/uL (0.00-0.22); BASOPHILS % (AUTO) 0.8 % (0.0-2.0); EOSINOPHILS # (AUTO) 0.2 K/uL (0-0.4); EOSINOPHILS % (AUTO) 2.7 % (0.0-4.0); LYMPHOCYTES # (AUTO) 1.4 K/uL (2.0-11.5); LYMPHOCYTES % (AUTO) 23.6 % (20.5-51.1); MEAN CORPUSCULAR HEMOGLOBIN 27 pg (27-31); MEAN CORPUSCULAR HGB CONC 34 g/dL (33-37); MEAN CORPUSCULAR VOLUME 78.1 fL (80-94); MONOCYTES # (AUTO) 0.4 K/uL (0.8-1.0); MONOCYTES % (AUTO) 6.9 % (1.7-9.3); PLATELET COUNT (AUTO) 68 K/uL (140-450); RED BLOOD CELL COUNT(AUTO) 2.47 MIL/uL (4.20-6.10); RED CELL DISTRIBUTION WIDTH 20.3 % (11.6-13.7); WHITE BLOOD COUNT (AUTO) 6.1 K/uL (4.8-10.8)
[2024-02-22 07:28] LABS: HEMATOCRIT 19.3 % (36-52); HEMOGLOBIN 6.6 g/dL (12.0-18.0)
[2024-02-22 08:00] VITALS: BP 107/60; PULSE 88; RESP 18; TEMP 97.9; O2SAT 100
[2024-02-22] MEDS: CHLORHEXADINE GLUC 2% CLOTH TP SCH (10:00)
[2024-02-22] MEDS: EPOETIN ALFA-EPBX 10,000 UNITS/ML VIAL SUBQ SCH (11:54)
[2024-02-22] MEDS: MUPIROCIN CA NASAL 2% 1GM TUBE NS SCH (11:54)
[2024-02-22 12:00] VITALS: BP 102/57; PULSE 77; RESP 18; TEMP 98; O2SAT 100
[2024-02-22 15:33] LABS: HEMATOCRIT 22.9 % (36-52); HEMOGLOBIN 7.7 g/dL (12.0-18.0)
[2024-02-22 16:00] VITALS: BP 106/56; PULSE 100; RESP 18; TEMP 97.7; O2SAT 100
[2024-02-22 20:00] VITALS: BP 110/52; PULSE 98; PULSE 99; RESP 18; TEMP 97.9; O2SAT 96
[2024-02-23] VITALS: BP 112/64; PULSE 65; PULSE 99; RESP 18; TEMP 97.6; O2SAT 100
[2024-02-23 04:00] VITALS: BP 99/56; PULSE 65; PULSE 90; RESP 19; TEMP 97.5; O2SAT 100
[2024-02-23 07:14] LABS: BASOPHILS % (AUTO) 0.7 % (0.0-2.0); EOSINOPHILS # (AUTO) 0.1 K/uL (0-0.4); EOSINOPHILS % (AUTO) 2.9 % (0.0-4.0); HEMATOCRIT 20.7 % (36-52); LYMPHOCYTES # (AUTO) 1.2 K/uL (2.0-11.5); LYMPHOCYTES % (AUTO) 25.4 % (20.5-51.1); MEAN CORPUSCULAR HEMOGLOBIN 28 pg (27-31); MEAN CORPUSCULAR HGB CONC 35 g/dL (33-37); MEAN CORPUSCULAR VOLUME 80.5 fL (80-94); MONOCYTES # (AUTO) 0.3 K/uL (0.8-1.0); MONOCYTES % (AUTO) 7.1 % (1.7-9.3); NEUTROPHILS % (AUTO) 63.9 % (42.2-75.2); RED BLOOD CELL COUNT(AUTO) 2.57 MIL/uL (4.20-6.10); RED CELL DISTRIBUTION WIDTH 20.8 % (11.6-13.7); WHITE BLOOD COUNT (AUTO) 4.7 K/uL (4.8-10.8)
[2024-02-23 07:31] LABS: ALANINE AMINOTRANSFERASE 17 U/L (12-78); ALBUMIN 2.6 g/dL (3.4-5.0); ALKALINE PHOSPHATASE 89 U/L (50-136); ANION GAP 9.6 (8-16); ASPARTATE AMINOTRANSFERASE 23 U/L (15-37); CALCIUM 9.3 mg/dL (8.5-10.1); CARBON DIOXIDE 30.8 mmol/L (21-32); CHLORIDE 102 mmol/L (98-107); GLUCOSE 88 mg/dL (74-106); POTASSIUM 4.4 mmol/L (3.5-5.1); SODIUM SERUM 138 mmol/L (136-145); TOTAL BILIRUBIN 0.5 mg/dL (0.0-1.0); TOTAL PROTEIN, SERUM 5.4 g/dL (6.4-8.2); UREA NITROGEN, BLOOD 32 mg/dL (7-18)
[2024-02-23 07:34] LABS: CREATININE 4.4 mg/dL (0.6-1.3)
[2024-02-23 07:35] LABS: HEMOGLOBIN 7.2 g/dL (12.0-18.0)
[2024-02-23 07:36] LABS: PLATELET COUNT (AUTO) 46 K/uL (140-450)
[2024-02-23 08:00] VITALS: BP 118/64; PULSE 94; RESP 18; TEMP 96.6; O2SAT 97
[2024-02-23] MEDS ORDERED: PANT40EC PO (10:54)
[2024-02-23 12:00] VITALS: BP 101/52; PULSE 97; RESP 18; TEMP 96.9; O2SAT 100
[2024-02-23 12:07] VITALS: BP 118/64; PULSE 94; RESP 18; TEMP 96.6
[2024-02-23 16:00] VITALS: BP 127/52; PULSE 97; RESP 18; TEMP 98.5; O2SAT 95
== END 2024-02-23 19:13 | disposition home health service (06) | DRG 393 ==
LOC: MED 12:42 → MTU 16:02
PROVIDERS: ADMIT Student in an Organized Health Care Education/Training Program; ATTEND Student in an Organized Health Care Education/Training Program
PROC: 30233N1 Transfusion of Nonautologous Red Blood Cells into Peripheral Vein, Percutaneous Approach (ICD-10-PCS; principal; 2024-02-19)
PROC: 5A1D70Z Performance of Urinary Filtration, Intermittent, Less than 6 Hours Per Day (ICD-10-PCS; 2024-02-20)
PROC: 0DJD8ZZ Inspection of Lower Intestinal Tract, Via Natural or Artificial Opening Endoscopic (ICD-10-PCS; 2024-02-21)
PROC: 5A1D70Z Performance of Urinary Filtration, Intermittent, Less than 6 Hours Per Day (ICD-10-PCS; 2024-02-22)
DX: K62.6 Ulcer of anus and rectum (principal); N18.6 End stage renal disease; I12.0 Hypertensive chronic kidney disease with stage 5 chronic kidney disease or end stage renal disease; Z68.1 Body mass index [BMI] 19.9 or less, adult; D62 Acute posthemorrhagic anemia; E44.0 Moderate protein-calorie malnutrition; D57.1 Sickle-cell disease without crisis; N40.0 Benign prostatic hyperplasia without lower urinary tract symptoms; N28.1 Cyst of kidney, acquired; E11.22 Type 2 diabetes mellitus with diabetic chronic kidney disease; Z99.2 Dependence on renal dialysis; Z90.49 Acquired absence of other specified parts of digestive tract; Z86.73 Personal history of transient ischemic attack (TIA), and cerebral infarction without residual deficits; Z92.3 Personal history of irradiation; Z85.46 Personal history of malignant neoplasm of prostate; Z86.16 Personal history of COVID-19; Z79.899 Other long term (current) drug therapy
CPT/HCPCS: 36415; 36430; 76700; 80048; 80053; 80076; 82948; 84100; 85018; 85025; 86886; 86900; 86901; 86920; 87081; 93005; 97116; 97163-GP; 99285; J1200; J1815; J2250; J2470; J3010; J7030; P9016; Q0092; Q5106